=== PATIENT | male | born 1960 | race Two or more races ===

== ENCOUNTER 2019-07-23 18:59 | Inpatient (IN) | payer BC ==
[~2019-07-23] VITALS: Ht 180.3 cm; Wt 80.3 kg
[2019-07-23] MEDS ORDERED: TRAMADOL HCL 50 MG TABLET ONE (19:21)
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
[2019-07-23] MEDS ORDERED: TRAMADOL HCL 50 MG TABLET PO ONE (19:30)
--- NOTE | 2019-07-23 20:00 | NUR ---
PT BACK FROM XRAY '
--- NOTE | 2019-07-23 20:37 | NUR ---
PT TAKEN TO CT
[2019-07-23] MEDS ORDERED: ONDANSETRON HCL/PF 4 MG/2 ML VIAL ONE (20:56)
[2019-07-23] MEDS ORDERED: MORPHINE SULFATE INJ 4 MG/ML DISP.SYRIN ONE ×2 (20:57→22:45)
[2019-07-23] MEDS ORDERED: MORPHINE SULFATE INJ 2 MG/ML DISP.SYRIN IV ONE ×2 (21:00→23:00)
[2019-07-23] MEDS ORDERED: ONDANSETRON HCL/PF 4 MG/2 ML VIAL IV ONE (21:00)
[2019-07-23 21:12] LABS: BASOPHILS % (AUTO) 0.1 % (0.0-2.0); HEMATOCRIT 49 % (39-51); HEMOGLOBIN 16.7 g/dL (13.5-17.5); LYMPHOCYTES # (AUTO) 0.5 /CMM (0.8-4.8); LYMPHOCYTES % (AUTO) 3.3 % (20.0-44.0); MEAN CORPUSCULAR HGB CONC 34 g/dl (31.0-36.0); MEAN CORPUSCULAR VOLUME 94 fL (80-96); MONOCYTES # (AUTO) 0.6 /CMM (0.1-1.30); MONOCYTES % (AUTO) 4.2 % (2.0-12.0); NEUTROPHILS # (AUTO) 14.3 /CMM (1.8-8.9); NEUTROPHILS % (AUTO) 92.4 % (43.0-81.0); PLATELET COUNT (AUTO) 300 /CMM (150-450); RED BLOOD CELL COUNT(AUTO) 5.22 MIL/uL (4.5-6.0); WHITE BLOOD COUNT (AUTO) 15.5 K/uL (4.3-11.0)
--- NOTE | 2019-07-23 21:16 | NUR ---
PT REMAINS IN BED SITTING UP STRAIGHT FOR COMFORT, 100% NON REBREATHER, BREATHING EVEN AND UNLABORED AT THE MOMENT, VITALS STABLE 6/10 IN PAIN SCALE
[2019-07-23 21:25] LABS: CALCIUM, SERUM 9.8 mg/dL (8.5-10.1); CREATININE 1.9 mg/dL (0.6-1.3); POTASSIUM 3.9 mmol/L (3.5-5.1)
[2019-07-23] MEDS ORDERED: IV NS 0.9% 1,000 ML BAG IV ONE (21:30)
[2019-07-23] MEDS ORDERED: HYDROCODONE/APAP 5/325MG TABLET PO PRN (23:30)
[2019-07-23] MEDS ORDERED: MAGNESIUM HYDROXIDE 30 ML UDC PO PRN (23:30)
[2019-07-23] MEDS ORDERED: Z GUARD REMEDY 2 OZ OINT TP PRN (23:30)
[2019-07-23] MEDS ORDERED: ZOLPIDEM TARTRATE 5 MG TABLET PO PRN (23:30)
[2019-07-23] MEDS ORDERED: ONDANSETRON HCL/PF 4 MG/2 ML VIAL IVP PRN (23:30)
[2019-07-23] MEDS ORDERED: MAG HYDROX/AL HYDROX/SIMETH 30 ML UDC PO PRN (23:30)
--- NOTE | 2019-07-24 00:22 | NUR ---
REPORT GIVEN TO EDWINA BIGGS
[2019-07-24 00:50] VITALS: BP 137/91
[2019-07-24] MEDS: IV NS 0.9% 1,000 ML IV SCH ×3 (02:00→18:33)
[2019-07-24] MEDS: MORPHINE SULFATE INJ 2 MG/ML DISP.SYRIN IV PRN ×4 (02:10→14:50)
[2019-07-24 04:00] VITALS: BP 126/80
--- NOTE | 2019-07-24 06:31 | NUR ---
PAINT PREPPER NOTES AWAKE & RESPONSIVE. NOT IN ANY DISTRESS. NO SOB NOTED. DENIES ANY PAIN OR DISCOMFORT AT THIS TIME. ON TELE SR @ 68 WITH IV-HL PATENT & INTACT. MONITORED ACCORDINGLY. CALL LIGHT WITHIN REACH. BED IN LOWEST POSITION. SR UP X 3 WITH BED ALARM ON FOR SAFETY. WILL ENDORSE TO NEXT SHIFT.
[2019-07-24] MEDS ORDERED: NO HOME MEDS (06:51)
[2019-07-24 07:08] LABS: BASOPHILS % (AUTO) 0.1 % (0.0-2.0); HEMATOCRIT 43 % (39-51); HEMOGLOBIN 14.7 g/dL (13.5-17.5); LYMPHOCYTES # (AUTO) 0.6 /CMM (0.8-4.8); LYMPHOCYTES % (AUTO) 7.1 % (20.0-44.0); MEAN CORPUSCULAR HGB CONC 34 g/dl (31.0-36.0); MEAN CORPUSCULAR VOLUME 94 fL (80-96); MONOCYTES # (AUTO) 0.7 /CMM (0.1-1.30); MONOCYTES % (AUTO) 8.1 % (2.0-12.0); NEUTROPHILS # (AUTO) 7.7 /CMM (1.8-8.9); NEUTROPHILS % (AUTO) 84.7 % (43.0-81.0); PLATELET COUNT (AUTO) 247 /CMM (150-450); RED BLOOD CELL COUNT(AUTO) 4.61 MIL/uL (4.5-6.0); WHITE BLOOD COUNT (AUTO) 9.1 K/uL (4.3-11.0)
[2019-07-24 07:24] LABS: CALCIUM, SERUM 8.9 mg/dL (8.5-10.1); CREATININE 1.4 mg/dL (0.6-1.3); MAGNESIUM 2.1 mg/dL (1.8-2.4); PHOSPHORUS 4.1 mg/dL (2.5-4.9); POTASSIUM 4.1 mmol/L (3.5-5.1)
--- NOTE | 2019-07-24 08:00 | NUR ---
HEAD KILN OPERATOR OPENING NOTES Received Patient awake and resting in bed. A/O x 4. VS stable with no acute distress. Breathing even and unlabored on room air with no respiratory distress. Patient stated tolerable generalized pain level of 6/10. Will continue to monitor and intervene as ordered. Telemonitor in place and patent reading SR with HR-66. 18g PIV on RAC clean, intact, patent and flushing well with NS infusing at 100ml/hr. Safety precautions in place. Bed locked and set to lowest position with side rails x 2 up. All needs rendered at this time. Call light within reach. Will continue to monitor.
[2019-07-24 08:01] VITALS: BP 125/73
[2019-07-24 16:00] VITALS: BP 128/74
--- NOTE | 2019-07-24 19:25 | NUR ---
CAMPUS MONITOR OPENING NOTES PATIENT AWAKE IN BED. A/OX4. ON RA. NO S/S OF ACUTE RESPIRATORY DISTRESS; BREATHING IS EVEN AND UNLABORED. PATIENT IS C/O OF 6/10 LEFT SHOULDER PAIN (BASELINE PAIN RATE); REFUSES ANY PRN PAIN MEDICATION AT THIS TIME. IV PRESENT ON RIGHT AC, SIZE 18, INTACT & PATENT, WITH NS RUNNING AT 100 ML/HR. ARM SLING PRESENT ON LEFT SHOULDER. SAFETY MEASURES IN PLACE AND PATIENT'S NEEDS MET. BED LOCKED, SIDE RAILS X2, CALL LIGHT WITHIN REACH. WILL CONTINUE TO MONITOR.
--- NOTE | 2019-07-24 19:33 | NUR ---
TUFTER HAND CLOSING NOTES Patient awake and resting in bed. A/O x 4. VS stable with no acute distress. Breathing even and unlabored on room air with no respiratory distress. Patient stated tolerable generalized pain. Will endorse to oncoming shift. Telemonitor in place and patent reading SR with HR-74. 18g PIV on RAC clean, intact, patent and flushing well with NS infusing at 100ml/hr. Safety precautions in place. Bed locked and set to lowest position with side rails x 2 up. All needs rendered at this time. Call light within reach. Will endorse plan of care to oncoming shift.
[2019-07-24] MEDS: ACETAMINOPHEN 325 MG TABLET PO PRN (19:48)
--- NOTE | 2019-07-24 19:50 | NUR ---
MS RN NOTES PATIENT'S TEMP 100.2. COOLING MEASURES IN PLACE AND PRN TYLENOL 650 MG PO GIVEN. WILL CONTINUE TO MONITOR.
[2019-07-24 20:00] VITALS: BP 117/70
[2019-07-24 20:39] VITALS: BP 117/70
--- NOTE | 2019-07-24 22:30 | NUR ---
MS RN NOTES PATIENT'S TEMP 99.1
--- NOTE | 2019-07-25 02:00 | NUR ---
OCCUPATIONAL THERAPY PROGRAM DIRECTOR NOTES PATIENT SLEEPING IN BED, EASY TO AWAKEN. CURRENTLY ON RA. NO RESPIRATORY DISTRESS NOTED; BREATHING IS EVEN AND UNLABORED. NO C/O PAIN. TELE MONITOR READING NSR HEART RATE 65. WILL CONTINUE TO MONITOR.
[2019-07-25 04:00] VITALS: BP 121/64
--- NOTE | 2019-07-25 05:00 | NUR ---
HADOOP DEVELOPER NOTES PATIENT AWAKE IN BED. C/O SLIGHT SOB AFTER AMBULATING FROM BATHROOM. 2L NC GIVEN TO PATIENT; STATED RELIEF OF SOB. TELE MONITOR READING NSR HEAR RATE 85. SPO2% 93. ENCOURAGED PATIENT TO USE INCENTIVE SPIROMETER; HIGHEST VOLUME REACHED 1000. SAFETY MEASURES IN PLACE. WILL CONTINUE TO MONITOR.
[2019-07-25] MEDS: IV NS 0.9% 1,000 ML IV SCH (05:32)
[2019-07-25] MEDS: ACETAMINOPHEN 325 MG TABLET PO PRN (06:04)
[2019-07-25 06:36] LABS: BASOPHILS % (AUTO) 0.3 % (0.0-2.0); EOSINOPHILS % (AUTO) 0.6 % (0.0-6.0); HEMATOCRIT 42 % (39-51); HEMOGLOBIN 14.3 g/dL (13.5-17.5); LYMPHOCYTES # (AUTO) 0.9 /CMM (0.8-4.8); LYMPHOCYTES % (AUTO) 9.4 % (20.0-44.0); MEAN CORPUSCULAR HGB CONC 34 g/dl (31.0-36.0); MEAN CORPUSCULAR VOLUME 94 fL (80-96); MONOCYTES # (AUTO) 0.7 /CMM (0.1-1.30); MONOCYTES % (AUTO) 7.1 % (2.0-12.0); NEUTROPHILS # (AUTO) 7.7 /CMM (1.8-8.9); NEUTROPHILS % (AUTO) 82.6 % (43.0-81.0); PLATELET COUNT (AUTO) 198 /CMM (150-450); RED BLOOD CELL COUNT(AUTO) 4.47 MIL/uL (4.5-6.0); WHITE BLOOD COUNT (AUTO) 9.3 K/uL (4.3-11.0)
[2019-07-25 06:52] LABS: CALCIUM, SERUM 8.7 mg/dL (8.5-10.1); CREATININE 1.3 mg/dL (0.6-1.3); MAGNESIUM 1.9 mg/dL (1.8-2.4); PHOSPHORUS 2.6 mg/dL (2.5-4.9); POTASSIUM 4.1 mmol/L (3.5-5.1)
--- NOTE | 2019-07-25 07:02 | NUR ---
ROOF SHINGLER CLOSING NOTES PATIENT SLEEPING IN BED, EASY TO AWAKEN. A/OX4. TELE MONITOR READING NSR, HEART RATE 65. ON 3L NC. NO S/S OF ACUTE RESPIRATORY DISTRESS; BREATHING IS EVEN AND UNLABORED. NO C/O PAIN AT THIS TIME. IV PRESENT ON RIGHT AC, SIZE 18, INTACT & PATENT, WITH NS RUNNING AT 100 ML/HR. ARM SLING PRESENT ON LEFT SHOULDER. SAFETY MEASURES IN PLACE AND PATIENT'S NEEDS MET. BED LOCKED, SIDE RAILS X2, CALL LIGHT WITHIN REACH. WILL ENDORSE TO DAY SHIFT NURSE PLAN OF CARE.
--- NOTE | 2019-07-25 07:30 | NUR ---
AQUATIC LIFE LABORER NOTES RECEIVED PATIENT SLEEPING IN BED COMFORTABLY IN MODERATE HIGH BACK REST, EASY TO AWAKEN. A/OX4. TELE MONITOR READING NSR, HEART RATE 60'S. ON 2L NC. NO S/S OF ACUTE DISTRESS NOTED AT TIME; BREATHING IS EVEN AND UNLABORED. NO C/O PAIN AT THIS TIME. IV FLUIDS ON RIGHT AC, #18, INTACT & PATENT, WITH NS RUNNING AT 100 ML/HR. ARM SLING PRESENT ON LEFT SHOULDER. SAFETY MEASURES IN PLACE. BED LOCKED IN LOWEST POSITION, SIDE RAILS X2, CALL LIGHT WITHIN REACH. WILL CONTINUE TO MONITOR.
[2019-07-25 07:52] VITALS: BP 115/69
[2019-07-25] MEDS ORDERED: HYDR-4384 PO (11:34)
--- NOTE | 2019-07-25 13:15 | NUR ---
RADIO INTERFERENCE EXPERT NOTES PATIENT DISCHARGED IN STABLE CONDITION. A/O X4. ABLE TO MAKE NEEDS KNOWN. V/S TAKEN, STABLE AND RECORDED. PATIENT'S IV REMOVED AND APPLIED PRESSURE DRESSINGS. NOTED WITH SLING ON LEFT SHOULDER AND LEFT LEG ABRASION BUT PATIENT REFUSED PICTURES. NAME ARM BAND REMOVED. ALL BELONGINGS CHECKED AND SIGNED. HEALTH TEACHINGS/DISCHARGED INSTRUCTIONS AND PRESCRIPTION MEDICATION GIVEN TO PATIENT. VERBALIZED UNDERSTANDING. PATIENT LEFT UNIT VIA WHEELCHAIR, ACCOMPANIED TO THE LOBBY AND PICKED UP BY WITH NO SIGNS OF DISTRESS NOTED. CHARGE NURSE AWARE OF DISCHARGED.
== END 2019-07-25 13:00 | disposition home or self-care (01) | DRG 199 ==
LOC: ER 18:59 → TELE 23:36
PROVIDERS: ADMIT Family Medicine; ATTEND Hospitalist
DX: S27.0XXA Traumatic pneumothorax, initial encounter (principal); N17.0 Acute kidney failure with tubular necrosis; S22.42XA Multiple fractures of ribs, left side, initial encounter for closed fracture; M62.82 Rhabdomyolysis; J98.11 Atelectasis; S42.022A Displaced fracture of shaft of left clavicle, initial encounter for closed fracture; S42.112A Displaced fracture of body of scapula, left shoulder, initial encounter for closed fracture; V19.9XXA Pedal cyclist (driver) (passenger) injured in unspecified traffic accident, initial encounter; Y93.55 Activity, bike riding; Y92.89 Other specified places as the place of occurrence of the external cause; E86.0 Dehydration; R73.9 Hyperglycemia, unspecified; D72.829 Elevated white blood cell count, unspecified; M46.00 Spinal enthesopathy, site unspecified
CPT/HCPCS: 36415; 71045-TC; 71250-TC; 73030-TC; 73200-TC; 80048-TC; 80061-TC; 82550-TC; 82553; 83735-TC; 84100-TC; 85025-TC; 85730-TC; 87081-TC; A4565; A6253; A6403; G0378; J2270; J2405; J7030